=== PATIENT | female | born 1950 | race Caucasian/White ===

== ENCOUNTER 2017-04-04 14:45 | Emergency (ER) | payer BC, OTHER ==
[2017-04-04 14:46] VITALS: BMI 30.8
--- NOTE | 2017-04-04 15:47 | ED PDOC ---
HPI: General Adult Time Seen by Provider: 04/04/17 15:45 Chief Complaint (Nursing): Fever Chief Complaint (Provider): FEVER/COUGH History Per: Patient (66 Y/O FEMALE H/O DM/HTN HERE WITH COUGH/FEVER SINCE YESTERDAY. NO VOMITING/DIARRHEA.) Past Medical History Reviewed: Historical Data, Nursing Documentation, Vital Signs Vital Signs: Last Vital Signs Temp 97.8 F 04/04/17 16:24 Pulse 78 04/04/17 16:24 Resp 18 04/04/17 16:24 BP 134/78 04/04/17 16:24 Pulse Ox 96 04/04/17 16:24 - Medical History PMH: Arthritis, Diabetes, HTN, Hypercholesterolemia - Family History Family History: States: No Known Family Hx - Home Medications Home Medications: Ambulatory Orders Medication Instructions Recorded Acetaminophen [Acetaminophen Extra 2 tab PO Q6 PRN #24 tablet 04/04/17 Strength] Ibuprofen [Motrin] 600 mg PO Q8 PRN #21 tab 04/04/17 Oseltamivir [Tamiflu] 75 mg PO BID #9 cap 04/04/17 - Allergies Allergies/Adverse Reactions: Allergies Allergy/AdvReac Type Severity Reaction Status Date / Time No Known Allergies Allergy Verified 04/04/17 15:04 Review of Systems ROS Statement: Except As Marked, All Systems Reviewed And Found Negative Constitutional: Positive for: Fever Respiratory: Positive for: Cough Physical Exam - Reviewed Nursing Documentation Reviewed: Yes Vital Signs Reviewed: Yes - Physical Exam Appears: Positive for: Well, Non-toxic, No Acute Distress Head Exam: Positive for: ATRAUMATIC, NORMAL INSPECTION, NORMOCEPHALIC Skin: Positive for: Normal Color, Warm, DRY Eye Exam: Positive for: EOMI, Normal appearance, PERRL ENT: Positive for: Normal ENT Inspection Neck: Positive for: Normal, Painless ROM Cardiovascular/Chest: Positive for: Regular Rate, Rhythm Respiratory: Positive for: CNT, Normal Breath Sounds Gastrointestinal/Abdominal: Positive for: Normal Exam, Bowel Sounds, Soft Back: Positive for: Normal Inspection Extremity: Positive for: Normal ROM Neurologic/Psych: Positive for: Alert, Oriented - ECG O2 Sat by Pulse Oximetry: 97 - Progress ED Course And Treament: TAMIFLU 75MG X 1 DOSE influenza a/b neg Disposition - Clinical Impression Clinical Impression: Influenza - Patient ED Disposition Is Patient to be Admitted: No - Disposition Disposition: Routine/Home Disposition Time: 17:02 Condition: FAIR Prescriptions: Acetaminophen [Acetaminophen Extra Strength] 2 tab PO Q6 PRN #24 tablet PRN Reason: Fever >100.4 F Ibuprofen [Motrin] 600 mg PO Q8 PRN #21 tab PRN Reason: Fever >100.4 F Oseltamivir [Tamiflu] 75 mg PO BID #9 cap Instructions: Flu, Adult (DC) Forms: [employer] (Portuguese), [facility] ED School/Work Excuse
[2017-04-04 16:25] VITALS: BP 134/78; PULSE 78; RESP 18; TEMP 97.8
[2017-04-04 17:03] VITALS: O2SAT 97
== END 2017-04-04 17:20 | disposition home or self-care (01) ==
LOC: H.ER 14:45
DX: J11.1 Influenza due to unidentified influenza virus with other respiratory manifestations (principal)

== ENCOUNTER 2018-04-26 05:44 | Emergency (ER) | payer BC, OTHER ==
[2018-04-26 05:44] VITALS: BMI 30.8
[2018-04-26 05:57] VITALS: O2SAT 98
--- NOTE | 2018-04-26 06:39 | ED PDOC ---
HPI: Abdomen Time Seen by Provider: 04/26/18 06:10 Chief Complaint (Nursing): Abdominal Pain Chief Complaint (Provider): Back Pain History Per: Patient History/Exam Limitations: no limitations Onset/Duration Of Symptoms: Days (x1) Additional Complaint(s): 67 y/o presents to the ED complaining of worsening severe back pain from her mid to lower back pain now with radiating pain to her abdomen. 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 Denies trauma, change in activity, or heavy lifting. On triage patient was noted to be hypertensive with 200s systolic. Past Medical History Reviewed: Historical Data, Nursing Documentation, Vital Signs Vital Signs: Last Vital Signs Temp 97.5 F L 04/26/18 05:54 Pulse 53 L 04/26/18 06:28 Resp 19 04/26/18 06:28 BP 140/68 04/26/18 06:28 Pulse Ox 98 04/26/18 05:54 - Medical History PMH: Arthritis, Diabetes, HTN, Hypercholesterolemia - Immunization History Hx Pneumococcal Vaccination: Yes - Home Medications Home Medications: Ambulatory Orders Medication Instructions Recorded Acetaminophen [Acetaminophen Extra 2 tab PO Q6 PRN #24 tablet 04/04/17 Strength] Ibuprofen [Motrin] 600 mg PO Q8 PRN #21 tab 04/04/17 Oseltamivir Cap [Tamiflu] 75 mg PO BID #9 cap 04/04/17 - Allergies Allergies/Adverse Reactions: Allergies Allergy/AdvReac Type Severity Reaction Status Date / Time No Known Allergies Allergy Verified 04/04/17 15:04 Review of Systems ROS Statement: Except As Marked, All Systems Reviewed And Found Negative Gastrointestinal: Positive for: Nausea, Abdominal Pain. Negative for: Vomiting Musculoskeletal: Positive for: Back Pain Physical Exam - Reviewed Nursing Documentation Reviewed: Yes Vital Signs Reviewed: Yes - Physical Exam Appears: Positive for: Uncomfortable (in pain frequently shifting positions in stretcher) Head Exam: Positive for: ATRAUMATIC, NORMAL INSPECTION, NORMOCEPHALIC Skin: Positive for: Normal Color, Warm, DRY Eye Exam: Positive for: EOMI, Normal appearance, PERRL ENT: Positive for: Normal ENT Inspection Cardiovascular/Chest: Positive for: Regular Rate, Rhythm. Negative for: Murmur Respiratory: Positive for: Normal Breath Sounds. Negative for: Respiratory Distress Gastrointestinal/Abdominal: Positive for: Normal Exam, Soft. Negative for: Tenderness, Mass Back: Positive for: Vertebral Tenderness (paraspinal tenderness to lower back just above iliac crest) Extremity: Positive for: Normal ROM. Negative for: Pedal Edema, Deformity Neurological/Psych: Positive for: Awake, Alert, Normal Tone. Negative for: Motor/Sensory Deficits - ECG ECG Rhythm: Positive for: Sinus Bradycardia Rate: 58 O2 Sat by Pulse Oximetry: 98 (RA) Pulse Ox Interpretation: Normal Medical Decision Making Medical Decision Making: Time: 06:10 MDM: Back pain now with nausea and transient hypertension. Workup for sudden lower back pain with Toradol and CT lumbar spine. Cardiac workup with Troponin and EKG * Labs * CXR * CT Lumbar spine * Toradol * Aspirin 07:00 Patient's blood pressure has been fine since being in ED and EKG is unremarkable. Patient care endorsed to Dr. Andre pending CT, labs, and reevaluation. Scribe Attestation: Documented by Adis Kidd, acting as a scribe for Madison Lerner MD. Provider Scribe Attestation: All medical record entries made by the Scribe were at my direction and personally dictated by me. I have reviewed the chart and agree that the record accurately reflects my personal performance of the history, physical exam, medical decision making, and the department course for this patient. I have also personally directed, reviewed, and agree with the discharge instructions and disposition. Disposition - Patient ED Disposition Is Patient to be Admitted: Transfer of Care - Disposition Disposition: Transfer of Care Disposition Time: 07:00 Forms: [employer] (Macanese) Patient Signed Over To: Carl Andre
[2018-04-26 06:57] LABS: BASO # 0.1 K/uL (0.0-0.2); BASO % 0.6 % (0.0-2.0); EOS # 0.2 K/uL (0.0-0.7); EOS % 1.2 % (0.0-4.0); HEMOGLOBIN 14.1 g/dL (12.0-16.0); LYMPH # 1.5 K/uL (1.0-4.3); MEAN CELL VOLUME 86.6 fl (81.0-99.0); MEAN CORPUSCULAR HEMOGLOBIN 28.4 pg (27.0-31.0); MEAN CORPUSCULAR HGB CONC 32.8 g/dL (33.0-37.0); MONO # 0.5 K/uL (0.0-0.8); MONO % 3.8 % (0.0-10.0); NEUT # 11.1 K/uL (1.8-7.0); NEUT % 83.4 % (50.0-75.0); RBC 4.96 Mil/uL (3.80-5.20); RED CELL DISTRIBUTION WIDTH 14.1 % (11.5-14.5); WHITE BLOOD COUNT 13.3 K/uL (4.8-10.8)
[2018-04-26 07:15] LABS: B-TYPE NATRIURETIC PEPTIDE 114 pg/ml (0-900); BLOOD UREA NITROGEN 14 mg/dl (7-17); CALCIUM 9.9 mg/dL (8.4-10.2); GFR NON-AFRICAN AMERICAN > 60
--- NOTE | 2018-04-26 07:42 | ED PDOC ---
- Laboratory Results Result Diagrams: 04/26/18 06:35 04/26/18 06:35 Lab Results: Troponin I < 0.0120 ng/mL (0.00-0.120) 04/26/18 06:35 NT-Pro-B Natriuret Pep 114 pg/ml (0-900) 04/26/18 06:35 - ECG O2 Sat by Pulse Oximetry: 98 (RA) Pulse Ox Interpretation: Normal - Progress Re-evaluation Time: 10:00 Condition: Re-examined, Improved Medical Decision Making Medical Decision Makin Patient signed out to me by Dr. Lerner, pending CT, reassessment. 0949 CT Chest IMPRESSION: 1. No CTA evidence for aortic aneurysm or aortic dissection. No evidence for pulmonary embolism. 2. No acute findings in the chest. 3. Mild asymmetric enlargement of the right kidney with significant perinephric inflammatory changes and mild fullness in the right collecting system. Findings could be related to pyelonephritis however recent passage of stone could also reflect similar changes. Clinical follow-up is advised. 4. 3.5 x 4.3 cm indeterminate low-attenuation area in the fundus of the uterus. Please correlate with pelvic ultrasound for further characterization. 5. Mild hepatomegaly and fatty liver. Urine dip reviewed, patient with large blood in urine. 1000 Patient informed of urine and CT results; reports feeling better. Patient to be discharged home with prescription for antibiotics; instructed to follow up with PMD in 2-3 days. Scribe Attestation: Documented by Sheron Holman, acting as a scribe for Carl Andre MD. Provider Scribe Attestation: All medical record entries made by the Scribe were at my direction and personally dictated by me. I have reviewed the chart and agree that the record accurately reflects my personal performance of the history, physical exam, medical decision making, and the department course for this patient. I have also personally directed, reviewed, and agree with the discharge instructions and disposition. Disposition Doctor Will See Patient In The: Office Counseled Patient/Family Regarding: Studies Performed, Diagnosis - Clinical Impression Clinical Impression: Abdominal pain in female, UTI (urinary tract infection), Uterine mass, Hyperglycemia - POA Present On Arrival: Poor Glycemic Control - Disposition Referrals: Braulio Atkins MD [Staff Provider] - Disposition: Routine/Home Disposition Time: 10:00 Condition: GOOD Additional Instructions: VAMSHI GALEANA, thank you for letting us take care of you today. Your provider was Carl Andre MD and you were treated for BACK PAIN. The emergency medical care you received today was directed at your acute symptoms. If you were prescribed any medication, please fill it and take as directed. It may take several days for your symptoms to resolve. Return to the Emergency Department if your symptoms worsen, do not improve, or if you have any other problems. Please contact your doctor or call one of the physicians/clinics you have been referred to that are listed on the Patient Visit Information form that is included in your discharge packet. Bring any paperwork you were given at discharge with you along with any medications you are taking to your follow up visit. Our treatment cannot replace ongoing medical care by a primary care provider outside of the emergency department. Thank you for allowing the [facility] team to be part of your care today. If you had an X-Ray or CT scan: A Radiologist will review the ED reading if any change in treatment is needed we will contact you. If you had a blood, urine, or wound culture: It will take several days for the results, if any change in treatment is needed we will contact you. If you had an STI test: It will take 48 hours for the results. Please call after 1 week if you have not heard back. Prescriptions: Sulfamethoxazole/Trimethoprim [Bactrim Ds Tablet] 1 each PO BID #14 tablet Instructions: Urinary Tract Infections in Adults, Hyperglycemia, Adult, Low Back Pain (DC) Forms: [employer] (Guyanese), [facility] ED School/Work Excuse
[2018-04-26] MEDS ORDERED: Iodixanol 320 MG/ML 100 ML BOTTLE IV ONE (07:58)
[2018-04-26] MEDS ORDERED: Sodium Chloride 0.9% 100 ML ONE (07:59)
--- NOTE | 2018-04-26 09:17 | CARD ---
APPROVED REPORT Date of service: 04/26/2018 EKG Measurement Heart [id number] <Conclusion> Sinus bradycardia Otherwise normal ECG
--- NOTE | 2018-04-26 09:48 | CT ---
PROCEDURE: CT Angiography Chest, Abdomen and Pelvis with and without intravenous contrast HISTORY: back pain with hypertension COMPARISON: Plain radiograph performed the same day. TECHNIQUE: Contiguous axial images of the chest, abdomen and pelvis were obtained in the phase of aortic enhancement. A noncontrast enhanced CT of the chest was also obtained to evaluate for possible intramural thrombus. Coronal and sagittal reformats were generated. IV dose administered: 99 cc Visipaque 320 Radiation dose: Total exam DLP = 1596.87 mGy-cm. This CT exam was performed using one or more of the following dose reduction techniques: Automated exposure control, adjustment of the mA and/or kV according to patient size, and/or use of iterative reconstruction technique. FINDINGS: CT ANGIOGRAPHY OF THE CHEST WITH & WITHOUT CONTRAST: AORTA (CHEST AND ABDOMEN): The thoracic and abdominal aorta are unremarkable, without aneurysm, dissection or rupture. No intramural thrombus identified in the thoracic aorta on the non-contrast CT of the chest. Although targeted for evaluation of aortic dissection cul the pulmonary arteries are normal in caliber without evidence for acute pulmonary embolism. The celiac axis, superior mesenteric artery, inferior mesenteric artery and the renal arteries are widely patent. The pelvic arteries are unremarkable. LUNGS: Well inflated and clear. No nodule, mass or consolidation. MEDIASTINUM: Normal caliber aorta and pulmonary arterial trunk. No aortic dissection. Normal size heart. LYMPH NODES: No pathologic mediastinal or hilar lymphadenopathy. PLEURA: No pneumothorax. No pleural fluid. BONES: Unremarkable. OTHER FINDINGS: None. CT ANGIOGRAPHY OF THE ABDOMEN AND PELVIS WITH CONTRAST: LIVER: Allowing for angiographic phase, mild hepatomegaly and fatty liver. No gross lesion or ductal dilatation. GALLBLADDER AND BILE DUCTS: Partially contracted. No calcified gallstones. PANCREAS: Normal in size with homogeneous enhancement. No gross lesion or ductal dilatation. SPLEEN: Normal in size and appearance. ADRENALS: No discrete nodule. KIDNEYS AND URETERS: There is mild asymmetric enlargement of the right kidney with significant perinephric fat stranding and mild fullness in the right collecting system. There is a subcentimeter simple cyst in the interpolar region of the right kidney posteriorly. The left kidney is normal in size with homogeneous enhancement. No hydronephrosis. VASCULATURE: No aortic aneurysm. No aortic atherosclerotic calcification or mural plaque present. STOMACH AND BOWEL: The small bowel loops are normal in caliber. The colon is grossly unremarkable. No bowel dilatation or wall thickening. Within normal limits for the patient's age with APPENDIX: Normal appendix. PERITONEUM: No free fluid. No free air. LYMPH NODES: No enlarged lymph nodes. BLADDER: Well distended and normal in appearance. REPRODUCTIVE: The uterus is anteverted and normal in size. There is a 3.5 x 4.3 cm low-attenuation area in the fundus of the uterus. BONES: No acute fracture. OTHER FINDINGS: None. IMPRESSION: 1. No CTA evidence for aortic aneurysm or aortic dissection. No evidence for pulmonary embolism. 2. No acute findings in the chest. 3. Mild asymmetric enlargement of the right kidney with significant perinephric inflammatory changes and mild fullness in the right collecting system. Findings could be related to pyelonephritis however recent passage of stone could also reflect similar changes. Clinical follow-up is advised. 4. 3.5 x 4.3 cm indeterminate low-attenuation area in the fundus of the uterus. Please correlate with pelvic ultrasound for further characterization. 5. Mild hepatomegaly and fatty liver.
[2018-04-26 10:59] VITALS: BP 133/66; PULSE 77; RESP 16; TEMP 98.2
--- NOTE | 2018-04-26 11:07 | RAD ---
Date of service: 04/26/2018 HISTORY: possible admission COMPARISON: 11/18/2010. FINDINGS: LUNGS: No active pulmonary disease. PLEURA: No significant pleural effusion identified, no pneumothorax apparent. CARDIOVASCULAR: No atherosclerotic calcification present No radiographic findings to suggest acute or significant cardiovascular disease. OSSEOUS STRUCTURES: No significant abnormalities. VISUALIZED UPPER ABDOMEN: Normal. OTHER FINDINGS: None. IMPRESSION: No active disease. No significant interval change compared to the prior examination(s).
== END 2018-04-26 10:50 | disposition home or self-care (01) ==
LOC: H.ER 05:44
DX: R10.9 Unspecified abdominal pain (principal); N39.0 Urinary tract infection, site not specified; E11.65 Type 2 diabetes mellitus with hyperglycemia; N85.8 Other specified noninflammatory disorders of uterus; I10 Essential (primary) hypertension; K76.0 Fatty (change of) liver, not elsewhere classified; N28.81 Hypertrophy of kidney
CPT/HCPCS: 71045; 71275; 74175; 80048; 82948; 83880; 84484; 85025; 93005; 96374; 99285; J1885; Q9967